=== PATIENT | male | born 1965 | race Caucasian/White ===

== ENCOUNTER 2018-04-20 11:54 | Day surgery (SDC) | payer OTHER ==
[~2018-04-20] VITALS: Ht 182.9 cm; Wt 100.0 kg
[2018-04-20] VITALS (9 sets, daily range): BP systolic 122–195; BP diastolic 83–117
[2018-04-20] MEDS ORDERED: MIDAZolam 5mg/5ml vial ONE (12:04)
[2018-04-20] MEDS ORDERED: LIDOcaine Viscous 15ml cup ONE (12:04)
[2018-04-20] MEDS ORDERED: fentaNYL/PF 50MCG/1 ML 2ML syringe ONE (12:04)
[2018-04-20] MEDS ORDERED: diphenhydrAMINE 50 mg/ml inj ONE (12:04)
[2018-04-20] MEDS ORDERED: glucagon, human recombinant 1mg kit ONE ×2 (12:05)
[2018-04-20] MEDS ORDERED: iohexol 300 MG/1 ML 50ml polymer ONE (12:05)
[2018-04-20] MEDS ORDERED: IBUP-1985 PO (12:16)
[2018-04-20] MEDS ORDERED: DAYQUIL (12:16)
[2018-04-20] MEDS ORDERED: NYQUIL (12:16)
[2018-04-20] MEDS ORDERED: ENAL5TAB PO (12:17)
== END 2018-04-20 14:56 | disposition home or self-care (01) ==
LOC: GI LAB 11:54
PROVIDERS: ATTEND Internal Medicine Gastroenterology
DX: Z46.59 Encounter for fitting and adjustment of other gastrointestinal appliance and device (principal); K83.8 Other specified diseases of biliary tract; I87.8 Other specified disorders of veins; Z92.21 Personal history of antineoplastic chemotherapy; Z79.1 Long term (current) use of non-steroidal anti-inflammatories (NSAID); Z79.899 Other long term (current) drug therapy
CPT/HCPCS: 43264; 43275; 74018; 74328; G0500; J1200; J1610; J2250; J3010; J7030; Q9967; 99152; 99153; A4620